=== PATIENT | female | born 1940 | race Caucasian/White ===

== ENCOUNTER 2020-10-10 15:37 | Emergency (ER) | payer OTHER ==
[~2020-10-10] VITALS: Ht 167.6 cm; Wt 65.8 kg
[2020-10-10] MEDS ORDERED: LIPITOR10 MG PO (16:47)
[2020-10-10] MEDS ORDERED: LOW DOSE ASPIRI81 M1 PO (16:47)
[2020-10-10] MEDS ORDERED: CEFUROXIME500 MG PO (16:49)
[2020-10-10] MEDS ORDERED: DULOXETINE HCL60 MG PO (16:49)
[2020-10-10] MEDS ORDERED: CARBIDOPA-LEVODOPA PO (16:49)
[2020-10-10] MEDS ORDERED: DEPAKOTE 250MG250 MG PO (16:49)
[2020-10-10] MEDS ORDERED: LANTUS SUBQ (16:50)
[2020-10-10 18:29] VITALS: BP 161/106
== END 2020-10-10 19:50 ==
LOC: ER 15:37
PROVIDERS: Emergency Medicine
DX: R45.851 Suicidal ideations (principal); Z20.822 Contact with and (suspected) exposure to COVID-19; R41.0 Disorientation, unspecified; Z88.0 Allergy status to penicillin; Z88.2 Allergy status to sulfonamides; Z79.899 Other long term (current) drug therapy; Z79.82 Long term (current) use of aspirin

== ENCOUNTER 2020-10-10 19:56 | Inpatient (IN) | payer OTHER, MEDICAID ==
[~2020-10-10] VITALS: Ht 1 cm; Wt 56.7 kg
[~2020-10-10 19:56] MED LIST: CARBIDOPA-LEVODOPA PO; CEFUROXIME500 MG PO; DEPAKOTE 250MG250 MG PO; DULOXETINE HCL60 MG PO; LANTUS SUBQ; LIPITOR10 MG PO; LOW DOSE ASPIRI81 M1 PO
[2020-10-10 20:40] VITALS: BP 140/80
--- NOTE | 2020-10-10 20:41 | NUR ---
ARRIVES TO FLOOR AT 2015 VIA CART FROM ER 80 YEAR OLD FEMALE. PT REPORTED TO HAVE BEEN [facility] BY AND SON WITH WHOM SHE LIVES WITH INCREASED AGITATION AND CONFUSION-PER HOSPITAL RECORDS SENT PT HAS MADE SEVERAL SI GESTURES AND STATEMENTS WHILE IN HOSPITAL-HAS BEEN ON CONSTANT OBSERVTION AT [facility] AFTER PUTTING CALL LIGHT CHORD AROUND NECK. PER [facility] ER STAFF WAS COMBATIVE AND ATTEMPTING TO GET OFF GOURNEY SEVERAL TIMES IN ER GIVEN IM GEODON AND ATIVAN. IS MILDLY SOMULENT DURING ADMIT INTERVIEW-SPEECH INCOHERENT-RAMBLING AND IS UNABLE TO PROVIDE ANY RELEVENT HX. ATTEMPTED TP CALL PT POOJA -NO ANSWER-MESSAGE LEFT. IS NOTED TO HAVE MULTIPLE SCABS ON ARMS,LEGS BILAT-WEARING VEST RESTRAINT AND HAND MITS UPON ARRIVAL TO UNIT. INCONTINENT CARE PROVIDED-POSITIONED FOR COMFORT IN BED. VS OBTAINED AND WNL. HIGH FALLS RISK-BED EXIT ALARM ON.
--- NOTE | 2020-10-11 00:27 | NUR ---
NO RETURN CALL RECEIVED FROM -PT REMAINS MILDLY SOMULENT-AROUSES TO VERBAL COMMANDS BUT SPEECH [id number] TO CONSENT TO TREATMENT D/T AMS AND SEDATION. DR. BARONE CONTACTED AND ORDERS RECEIVED TO INITATE 96 HOUR HOLD. FAXED TO [facility] AND AND [facility]. BLOOD SUGAR CHECKED AT 2200 AND IS 130-LANTUS INSULIN ADMINISTERED PER IN STORE REPRESENTATIVE ORDER.APPEARS TO BE RESTING QUIETLY IN BED
[2020-10-11 09:38] VITALS: BP 143/58
--- NOTE | 2020-10-11 18:06 | NUR ---
PATIENT WAS IN BED AWAKE WHEN CARE ASSUMED. DURING SHIFT CHANGE ROUND WITH OFF-GOING NURSE, WE NOTICED YELLOW LIQUID, ON THE BED/FLOOR LOOKS LIKE VOMITUS, PATIENT CLEANED UP, ASSISTED UP BY THIS FUEL AGENT/SECOND RN. NO FURTHER NAUSEA OR VOMITING NOTED, NURSE PRACTITIONER (TAHIR) NOTIFIED. PATIENT IS ALERT, AND ORIENTED X 1, FORGETFUL, VERY CONFUSED. PATIENT DENIES SUICIDAL IDEATION, NOT ABLE TO APPROPRIATELY RESPOND TO FURTHER ASSESSMENT QUESTIONS DUE TO COGNITIVE IMPAIRMENT. MEDICATION GIVEN CRUSHED IN PUDDING, WELL TOLERATED. INTERMITTENT YELLING NOTED, PATIENT BECAME VERY DIFFICULT TO VERBALLY REDIRECT, PRN SEROQUEL 25MG GIVEN AT 1553HRS, WITH POSITIVE EFFECT. NO S/S OF HYPER/HYPOGLYCEMIA NOTED, INSULIN GIVEN PER ORDER. NO SIGN OF ACUTE DISTRESS NOTED AT THIS TIME, WILL MONITOR FOR SAFETY.
[2020-10-11 20:42] VITALS: BP 120/94
--- NOTE | 2020-10-12 03:53 | NUR ---
ASSESSMENT: PT YELLED THROUGH OUT THE NIGHT. CALLS OUT FOR A "JOSEY". SEVERLY AGITATED. ZYPREXIA GIVEN IM WITH GOOD RESULTS. INCONT, WEARS A BRIEF. VSS, AFEBRILE. WAS COMPLIANT WITH TAKING MEDS THIS EVENING. DENIES PAIN. SLOW PROGRESS TOWARDS DC GOALS, WILL CONTINUE TO MONITOR.
[2020-10-12 08:25] VITALS: BP 141/70
--- NOTE | 2020-10-12 15:00 | NUR ---
Sleeping soundly this AM, arouses for meds given crushed in apple sauce. Confused speech, disorientated X4. No speech/behavior suggestive of SI/HI. Breath sounds clear. Reg HR auscultated. Color pink with brisk capillary refill with palpable peripheral pulses, no edema. Yellow urine per brief. Active bowel sounds over soft, rounded abdomen. Multiple circular scabs on lower legs, no s/o infection. called for update, given privacy code.
[2020-10-12 19:58] VITALS: BP 112/54
--- NOTE | 2020-10-12 20:54 | H ---
[facility] [address] [place] [address] HISTORY AND PHYSICAL Name: MONAE PATTON Room #: 525A-A ADM IN M.R.#: [id number] Admission: 10/10/20 Attend Phys: Alfredo Duncan MD Discharge: Date of : 44 Report #: [id number] THIS REPORT FOR: cc: FAM - Family physician unknown FAM - Family physician unknown Danny Reyes DO ~ DATE OF SERVICE: 10/11/2020 INPATIENT PSYCHIATRIC EVALUATION ATTENDING PSYCHIATRIST: Danny Reyes DO FRACTIONATION SUPERVISOR: Dr. Jabari Dejesus, hospitalist service. REASON FOR ADMISSION: Inpatient referral from [facility] for dementia with behavioral disturbance and psychosis. SOURCES OF INFORMATION: Interview with the patient's physician, medical records from [facility]. HISTORY OF PRESENT ILLNESS: This is a 80-year-old female brought by EMS for her home where she lives. She lives with her and son. She already has Parkinson's disease, history of dementia, requiring assistance with activities of daily living, history of depression, anxiety also noted. The patient was admitted around 10/07/2020 to [facility]. Bed bugs were noted as well with the patient, she was confused, agitated, aggressive. She made a suicidal statement. Labs from [place] showed urine with leukocytes growing gram-negative rods. TSH elevated at 5.88. CT head showed mild degree of cerebral atrophy. The patient's spouse spoke with correctional counselor/case manager reported the patient has been very agitated for the past week. Before admission, she has had episodes like this previously. She was put on Trileptal to assist with agitation, but has not been helpful. She was recently at [facility] a few weeks ago. stated there was no psychiatric followup since hospitalization. At [facility], the patient received Haldol and Geodon for agitation prior to arrival on the medical floor. She was screaming. PAST PSYCHIATRIC HISTORY: Depression, anxiety, dementia, history of anger issues and self-mutilating behavior. Recent prescription fills noted, Cymbalta 60 mg daily, Trileptal 300 mg twice daily, trazodone 25 mg at bedtime and Lamictal 25 mg b.i.d. The patient also has history of prescriptions for donepezil, gabapentin, Lyrica. Documented home meds [facility] [address] [place] [address] [facility] #: 525A-A ADM IN .R.#: [id number] Admission: 10/10/20 Attend Phys: Alfredo Duncan MD Discharge: Date of : 44 Report #: [id number] The patient's home medications noted at [facility] do not make a great amount a sense, so the inpatient active medications include aspirin 81 mg oral daily, atorvastatin 10 mg oral daily, carbidopa/levodopa one tab p.o. t.i.d., duloxetine 60 mg p.o. daily, famotidine 20 mg oral daily. Other medications as follows: She got Rocephin, Depakote DR 250 mg p.o. daily and 500 mg p.o. at bedtime, insulin glargine 14 units at bedtime, lispro, lamotrigine 25 mg oral b.i.d., levothyroxine 50 mcg oral daily, lisinopril 5 mg oral daily, Protonix 40 mg daily, Seroquel. SOCIAL HISTORY: No alcohol, no tobacco. No recreational drugs. FAMILY HISTORY: Brothers with diabetes mellitus. PAST SURGICAL HISTORY: Removal bladder stimulator 09/01/2017, placement of a stimulator 09/27/2015, percutaneous peripheral sacral nerve evaluation, appendectomy, cataract surgery, cholecystectomy, eye surgery, hysterectomy. At [facility], she was admitted for UTI, Klebsiella pneumoniae given Rocephin. She was continued with her Sinemet for Parkinson's disease. She had some malignant hypertension, diabetes mellitus type 2, was controlled, anemia with iron deficiency was detected. COVID-19 PCR was negative. LABORATORY DATA: Review of laboratories from [facility]. Other measurements weight 62.4 kilograms by bed scale. On 10/07/2020, H 10.1 and 31.1, white cell count 6.7 and platelet count 312. Sodium 141, potassium 3.5, chloride 106, bicarbonate 27, calcium 8.5, glucose 96. Hemoglobin A1c 8. Iron 45 mcg/dL. Iron saturation 23%. TIBC 197, which is low, UIBC 152, BUN 11, creatinine 0.7, estimated GFR greater than 60. TSH 5.68. Here at [facility], the patient was oriented to person. He was able to shake my hand. Not oriented to time and very limited interview. She was in a Amna chair with lap felicitas in place, turning her head intermittently. mse: attn/concn: very limited speech: slow/loud tp/tc/linear/very limited denies si/hi memory: not able to cooperate with testing insight/judgment impaired fund of knowledge diminished VITAL SIGNS: As follow today, 10/11/2020, temperature 35.9, pulse 106, respirations 18, BP 143/50, O2 sat 98%. Glucose around 11:20 was 330 that was [facility] [address] [place] [address] HISTORY AND PHYSICAL Name: MONAE PATTON Room #: 525A-A ADM IN M.R.#: [id number] Admission: 10/10/20 Attend Phys: Alfredo Duncan MD Discharge: Date of : 44 Report #: [id number] before lunch, before breakfast 208, last . CURRENT MEDICATIONS: In the hospital include cyanocobalamin 1000 mcg oral daily, Seroquel 25 mg oral at bedtime, Depakote 500 mg p.o. at bedtime, Seroquel 12.5 mg p.o. daily, lisinopril 5 mg p.o. daily, lamotrigine 25 mg p.o. b.i.d., duloxetine 60 mg oral daily, Depakote 250 mg oral daily, cefuroxime 500 mg p.o. b.i.d. formulation: 80 y/o female, known dementia case, admitted for agiataion,aggressive bhevaior and concern for family ability to care. Major Neuruocognitive Disorder with Behavioral Disturbance htn uti debility/deconditioning plan: evaluate and stabilize hospitalist conculted for medical management depakote level wednesday am no seizure hx accprding to disocntinue duloxetine, atorvastatin, seroquel to limit medication burden DDI's <ELECTRONICALLY SIGNED> By: Danny Reyes, 10/12/202053 1427 1521 Danny Reyes, DO /nt
--- NOTE | 2020-10-13 03:04 | NUR ---
ASSESSMENT: PT WAS SITTING IN THE CORRIDOR, IN A ANANYA CHAIR AT THE CHANGE OF SHIFT. PT'S CALLED. PT WAS ALLOWED TO TALK TO BUT WAS UNABLE TO HEAR HIM VIA THE TELEPHONE. THIS RN UPDATED THE PT'S AFTER GETTING PT'S CODE NUMBER FROM HIM. AFTER PT LEARNED THAT THE WAS NOT ALLOW TO VISIT AT THIS TIME SHE BEGAN YELLING HIS NAME. PT BECAME SEVERLY AGITATED AND NEED ZYPREXIA IM TO CALM DOWN. THE IM ZYPREXIA WAS NOT EFFECTIVE IT WAS THE NIGHT BEFORE. AFTER ABOUT 1.5 HRS THE PT FINALLY WENT TO SLEEP. SAFETY MEASURES WERE MAINTAINED. PT IS ALERT TIMES ONE WITH CONFUSION AND FORGETFULLNESS. VSS, AFEBRILE. PT WAS ABLE TO PIVOT FROM CHAIR TO BED WITH ASSIST OF 2. WILL CONTINUE TO MONITOR.
[2020-10-13 09:50] VITALS: BP 154/66
[2020-10-13 10:08] VITALS: BP 154/66
--- NOTE | 2020-10-13 10:24 | NUR ---
ASSUMED CARE AT 0700. BLOOD SUGAR LOW THIS MORNING (49). SHE WAS GIVE APPLE JUICE AND TOOK IT AGAIN AND IT WAS HIGHER (51). SHE ATE BREAKFAST AND IT WAS THEN TAKEN AGAIN BY PCT. IT WAS THEN 241. DR. WOODS NOTIFIED OF THE SAME. SHE HAS BEEN SITTING QUIETLY IN A RECLINING CHAIR. SHE TOOK HER MORNING MEDICATION WITHOUT PROBLEMS NOTED. SHE SAT THROUGH MORNING RT GROUP.
[2020-10-13 20:00] VITALS: BP 144/74
[2020-10-13 20:01] VITALS: BP 144/74
--- NOTE | 2020-10-14 03:45 | NUR ---
PATIENT WAS UP IN ANANYA CHAIR AT BEGINNING OF THE SHIFT. SHE WOULD CRY AND CALL OUT AT TIMES. SHE WOULD HIT HER HEAD WITH HER HANDS. SHE WOULD CALM WHEN SPOKEN TOO AND EASILY REDIRECTED. PATIENT WAS ASSISTED TO THE BATHROOM AND THEN TO BED AROUND 2200. SHE STRIPPED HER CLOTHES OFF AND SLEPT IN BED FOR A FEW HOURS AND BECAME AGITATED. PRN GIVEN. PT BACK TO SLEEP. PATIENT AWOKE AND TALKED TO HERSELF AND THEN BEGAN YELLING OUT. PATIENT WITH INCONTINENT CARES DONE. AND PATIENT PLACED IN ANANYA CHAIR WITH CHAIR ALARM ON AND WORKING AND BROUGHT OUT TO DINING ROOM. SHE IS SITTING CALMLY AND TALKING OUT AT TIMES TO OTHERS. CONTINUING TO MONITOR.
[2020-10-14 10:35] VITALS: BP 152/64
--- NOTE | 2020-10-14 15:16 | NUR ---
REQUIRES TOTAL ASSISTANCE IN ALL ADLS -WHEN HANDED CUP OF FRUIT FROM BREAKFAST TRAY WITH SPOON IN IT-PUT SPOON IN MOUTH AND ATTEMPTED TO SUCK ON IT LIKE A STRAW-DESPITE PROMPTING AND VERBAL QUEING FROM STAFF REQUIRES MAX ASSIST WITH ALL CARES-ATTEMPTING TO STAND UP ON HER STATING THAT SHE IS GOING TO "GO FIND MY HE HAS BEEN AT THE STORE FOR A LONG TIME"REQUIRES ASSIST OF TWO TO TRANSFER TO/FROM BEDSIDE COMMODE-INCONTINENT OF BOWEL AND BLADDER. WILL OCCASSIONALLY YELL OUT AND DID HAVE ONE EPISODE OF SLAPPING SELF IN FACE AT LUNCH TIME BUT WAS EASILY REDIRECTED. REQUIRES MEDS CRUSHED WHEN GIVEN WHOLE IN APPLESAUCE WILL SPIT OUT. "
--- NOTE | 2020-10-14 18:24 | NUR ---
CAL recieved a call from [facility] [phone], concerning a hotline recieved on the Pt. Marcela provided information on the Pt concerning bed bug bites and Pt's capacity to return home safely. Marcela stated she would like updates concerning the Pt's discharge plan. Gay also stated she would talk to the family about if the Pt's son has a DPOA and call CAL back. Cal will continue to follow
[2020-10-14 19:35] VITALS: BP 159/66
[2020-10-14 20:10] VITALS: BP 159/66
--- NOTE | 2020-10-15 04:11 | NUR ---
PATIENT HAS BEEN CALMER TONIGHT AND HAS SLEPT THRU THE NIGHT. EARLIER IN THE EVENING SHE WAS YELLING OUT AND SCREAMING. SEROQUEL 25MG PO GIVEN WITH HS MEDS CRUSHED IN PUDDING. PT SHOWING SIGNS OF POSSIBLE TARDIVE DYSKENSIA WITH ABNORMAL TONGUE MOVEMENT. NOT SURE IF THIS IS JUST HER OR SOMETHING MEDICAL FROM HER MEDS. PATIENT SLEEPING AT THIS TIME. BED IN LOW POSITION AND BED ALARM IS ON. CONTINUING TO MONITOR.
[2020-10-15 07:55] VITALS: BP 153/84
[2020-10-15 12:12] LABS: HEMATOCRIT 35.7 % (37.0-47.0); HEMOGLOBIN 11.6 gm/dL (12.0-15.0); MCH 29.5 pg (26.0-34.0); MCHC 32.5 g/dL (28.0-37.0); MCV 90.7 fL (80.0-100.0); RBC 3.93 mil/uL (4.20-5.00); RDW 14.2 % (10.5-14.5); WBC 6.8 thou/uL (4.0-11.0)
[2020-10-15 12:28] LABS: CREATININE 1.2 mg/dL (0.6-1.0); MAGNESIUM 2.3 mg/dL (1.8-2.4); POTASSIUM 4.6 mmol/L (3.5-5.1)
--- NOTE | 2020-10-15 14:13 | NUR ---
Assumed pt care at 0700. pt was oriented to self. Assessments completed,VSS. pt ambulates with a Amna chair. Denies si/hi. denies pain. pt had A BOWEL MOVEMENT THIS SHIFT. pT TOOK MEDS WHOLE WITH THIN LIQUID, NO DIFFICULTY NOTED.PT WAS CALM AND CO-OPERATIVE. AM BLOOD SUGAR WAS 129. NOON BLOOD SUGAR WAS 485, IT WAS RECHECKED AND IT WAS 490. DR HAND WAS NOTIFIED ABOUT PT bLOOD SUGAR. 12 UNIT OF INSULIN LISPRO WAS GIVEN AT 1319. PT INSULIN WAS RECHECK AT 1444 AND IT WAS 421. DR HAND WAS NOTIFIED. 10 UNITS OF INSULIN LISPRO WAS ADMINISTERED AT 1458. AT THIS TIME PT IS ASYMPTOMATIC. PT IS SITTING IN THE DAY ROOM WATCHING TV. WILL CONTINUE TO MONITOR.
--- NOTE | 2020-10-15 14:49 | NUR ---
Blood sugar re-checked. Currently 421. Patient received 12 units Insulin Lispro approximately 1.[address] Hammonds notified. Order obtained for Insulin Lispro 10 units onetime now. Order noted.
[2020-10-15 16:59] LABS: % SATURATION 31 % (20-39); IRON 67 ug/dL (50-170); TIBC 216 ug/dL (250-450)
[2020-10-15 17:27] LABS: FOLIC ACID 19.9 ng/mL (8.6-58.9)
--- NOTE | 2020-10-15 17:30 | NUR ---
CAL called Pt's , Antonio, to follow up about guardianship. Throughout the conversation Antonio asked " so when are you going to do this" CAL had to explain several times that he would need to contact and energy attorney to start the process. CAL again informed Of the recommendation for LTC of the Pt. Antonio then stated he has spoken to the Pt a few times and " she sounds like her normal self, so I think she can come home". CAL asked for the Pt son's phone number in an effort to make contact concerning the matter. Antonio did provide the phone number. CAL called Temi, , Pt's son concerning the matter. CAL provided information about Pt needing a guardian and due to not being able to sign a DPOA. Also recommendation for LTC. Pat stated they have been working on the bed bug issue in the house. Pat did confirm that Pt was hitting herself and yelling out at home. When asked about thoughts of LTC Pat stated it was a " hard choice". CAL asked Pat to talk to his father about a guardianship. Pat stated he would. CAL left contact information. CAL will follow up
[2020-10-15 19:38] VITALS: BP 136/117
[2020-10-16 00:06] LABS: GLYCOHEMOGLOBIN (HGB A1C) 7.8 % (4.8-5.6)
--- NOTE | 2020-10-16 03:59 | NUR ---
Assumed care for pt at 1900. Pt sitting in gerichair with chair alarm. Pt A&O to self. Pt has been calm and cooperative with assessment and cares. Pt compliant with HS medications and takes crushed with yogurt. Pt denies pain when asked. Pt not able to answer other nursing assessment questions. Pt last BM on 10/13/20 per report. Pt has been rested in bed during night hours, with eyes shut and appears to be sleeping. Pt hollered out earlier in shift, but was easily redirectable. Pt fall score is 55 and is on High Fall Risk precaution protocols. Pt on q 12 min checks for safety. Will continue to monitor for any changes in mood/behavior.
[2020-10-16 09:20] VITALS: BP 124/52
--- NOTE | 2020-10-16 13:15 | NUR ---
PATIENT HAS BEEN UP, AND OUT IN DAYROOM , PARTICIPATING IN GROUP THERAPY. PATIENT TOOK ALL MEDICATION CRUSHED IN YOGOURT WITHOUT DIFFICULTY. PATIENT IS EATING MEALS, AND DRINKING FLUID WELL. INCONTINENT CARE PROVIDED PER STAFF. PATIENT IS ALERT, AND ORIENTED X 1-2, ABLE TO COHERENTLY RESPOND TO SOME ASSESSMENT QUESTIONS, SHE DENIES SUICIDAL IDEATION, STARTED HITTING SELF IN THE HEAD, "I GO BANANAS WITHOUT LÁZARO, WE HAVE BEEN FOR 51 YEARS, HAVE NEVER BEEN SEPERATED". (LÁZARO) CALLED ON THE PHONE, AND PATIENT SPOKE WITH HIM. PATIENT CHOOSE NOT TO RESPOND TO FURTHER ASSESSMENT QUESTIONS, CONTINUE TO HIT SELF IN THE HEAD, YELLING, RESTLESS, BECAME DIFFICULT TO VERBALLY REDIRECT, PRN IM ZYPREXA 5MG GIVEN TO RIGHT DELTOID, WELL TOLERATED. AFFECT IS FLAT/BLUNTED, MOOD IS DEPRESSED/RESTLESS. NO SIGN OF ACUTE DISTRESS NOTED AT THIS TIME, WILL CONTINUE TO REDIRECT, AND MONITOR FOR SAFETY.
[2020-10-16 19:29] VITALS: BP 117/59
--- NOTE | 2020-10-17 04:09 | NUR ---
ASSUMED CARE FROM DAY SHIFT, PT IN GERCHAIR IN DAYROOM YELLING , UNBALE TO FOLLOW DIRECTION, ABLE TO TAKE PO PILLS IN PUDDING , PT THEN PLACED IN BED, AND ABLE TO SLEEP QUIETLY THROUHGOUT DELMI ROUNDCALVIN. BED ALARM ON FOR SAFETY.WILL CONITIUE WITH CURRENT PLAN OF CARE
--- NOTE | 2020-10-17 08:26 | NUR ---
PT SEEMS CONTENT IN DINING ROOM THIS AM. PT TOOK MEDS WHOLE WITHOUT ANY ISSUES. NO BEHAVIORS SEEN FROM PT AT THIS TIME. PT LUNGS CLEAR. PT DIDN'T SAY ANY GOAL OR ANYTHING SHE WANTS TO WORK ON TODAY.
[2020-10-17 08:30] VITALS: BP 180/70
[2020-10-17 09:47] VITALS: BP 180/70
--- NOTE | 2020-10-17 12:38 | NUR ---
on 10/16/[address] Newell called the [facility] worker, Marcela and left a message for a call back. Gay did not return the phone call. CAL again attempted to contact the Gay on this day. CAL left another message for a call back
--- NOTE | 2020-10-17 14:14 | NUR ---
RT Progress Note- Augie has not been active in both the milieu and recreation therapy groups since her admission. She does attend morning RT groups but does not engage even when prompted. It appears that pt becomes overstimulated in the afternoons and begins to yell out or hit herself which has hindered her ability to be present in groups. CARDIAC CATH TECH will continue to engage pt and encourage active participation.
--- NOTE | 2020-10-17 16:26 | NUR ---
PT ACCUCHECK TAKEN AND BLOOD SUGAR AMT 62, GAVE PT 8 OZ OF OJ AND GRAHMN CRACKERS. PT WAS ABLE TO EAT CRACKERS WITHOUT ANY PROBLEMS.
--- NOTE | 2020-10-17 18:00 | NUR ---
PT DID EAT DINNER THIS SAMUEL. WILL ASSESS BLOOD SUGAR AROUND 1999. PT DIDN'T RECIEVE ANY INSULIN AT DINNER.
--- NOTE | 2020-10-17 18:54 | NUR ---
PT HAS BEEN YELLING LÁZARO, ASKED PT WHO IS LÁZARO AND SHE SAID OVER THERE, PT THINKS HE IS HER. PT BLOOD SUGAR CHECKED 219. PT RECIEVED OLANZIPINE 5MG IM TO LEFT DELTOID.
[2020-10-17 19:15] VITALS: BP 143/76
[2020-10-17 20:00] VITALS: BP 143/76
--- NOTE | 2020-10-17 20:08 | NUR ---
PT TOOK MEDS THIS SAMUEL WITHOUT ANY ISSUES. PT NEEDS TO TAKE LARGER PILLS ONE AT A TIME. PT DID TRY TO TAKE OUT THE MEDS THAT DIDN'T GET SWALLOWED, PT DID SWISH WATER IN MOUTH WITH MEDS TO GET THEM BACK TO SWALLOWING.
--- NOTE | 2020-10-17 20:16 | NUR ---
PT STILL RESTLESS AND YELLING FOR HELP. ADM SEROQUEL 25MG PO FOR AGITATION. PT IN BED AT THIS TIME. PT WAS INCON. X1.
--- NOTE | 2020-10-17 20:53 | NUR ---
PT TALKING ABOUT NEEDING A HAIR CUT AND TO SEE THE DR. PT HAS LEGS OVER RAIL OF BED. PUT BLANKET OVER PT AND STATED IT WAS NIGHT AND NO APT AT THIS TIME OR ABLE TO GET HAIR DONE, PT BANGING ON SIDE OF RAIL WITH HAND ALSO.
--- NOTE | 2020-10-17 22:53 | NUR ---
Patient has been screaming from her bed for approximately 4 hours. Patient offered snack, toileting, music therapy, companionship. None of which have been effective. Attempted to assist patient with re-positioning, placed in ashlie chair, placed in bed. None of which has been helpful. Patient screaming for Antonio, talking to unseen others, speaking non-sensical speech. Appears to be responding to internal stimuli. Patient appears to be asleep for approximately 3 minutes then wakes up screaming and appears afraid. Spoke with Dr. Duncan. Due to PRN Seroquel and Olanzapine being ineffective, order obtained for Geodon 10mg IM STAT. Will also add that patient is hitting her head and attempting to bang head into side rail at this time.
--- NOTE | 2020-10-18 07:39 | NUR ---
PT BLOOD SUGAR THIS AM IS 68. GAVE PT ORANGE JUICE AND ALSO GRAHMN CRACKERS BEFORE BREAKFAST WAS SERVED.
[2020-10-18 08:30] VITALS: BP 145/74
--- NOTE | 2020-10-18 08:52 | NUR ---
PT SITTING OUT IN DINING ROOM AND ABLE TO FEED SELF. PT ABLE TO TAKE MEDS WHOLE WITH THIN WATER. PT SEEMS CALM AT THIS TIME. PT HAS SCARS TO LEFT LOWER LEG AND SOME SCABS TO RLE. PT DENIES ANY PAIN.
[2020-10-18 10:49] VITALS: BP 145/74
--- NOTE | 2020-10-18 13:19 | NUR ---
PT STARTED YELLING AND WANTING TO GO HOME. PT HAD TO BE TAKEN OUT OF THE DINING ROOM. ADM SEROQUEL 25MG PO FOR AGITATION.
--- NOTE | 2020-10-18 15:15 | NUR ---
NOTIFIED DR. LYNN STEELE ABOUT INSULIN. ORDERS WAS CHANGED FOR GLARGIN. WANTED TO KEEP PT ON MOD. SLIDING SCALE AT THIS TIME AND WILL MONITOR PT OVER THE WEEKEND ON GLUCOSE READINGS.
[2020-10-18 19:38] VITALS: BP 129/50
--- NOTE | 2020-10-19 04:52 | NUR ---
Pt. agitated at the first part of the shift yelling out and hitting her hands on the chair. Po med given for agitation (see emar) with little relief. Im med given later as pt. continued yelling out (see emar) with relief.
[2020-10-19 09:16] VITALS: BP 154/82
--- NOTE | 2020-10-19 16:12 | NUR ---
PT WAS VERY AGITATED THIS AFTERNOON @ 1300..SHE WAS BANGING HER HEAD ON GLASS WINDOW AND YELLING...MEDICATED WITH ZYPREXA IM @ 1330 WITH FAIRLY GOOD RESULTS..
[2020-10-19 20:07] VITALS: BP 123/58
--- NOTE | 2020-10-20 03:33 | NUR ---
10-19-20 CARE TRANSFERRED 1899 OBSERVED PT SITTING IN RECLINER IN DAY ROOM AND NOTED PT JAW AND TONGUE IN CONSTANT MOTION. LATER PT AAOX1, VSS, RR EVEN AND NONLABORED ON RA. OBSERVED NO SI/HI BEHAVIORS AND PT DENIES PAIN. LATER PT BECAME AGITATED AND PRN MEDICATION WAS ADMIN, LATER NOTED PT WAS RESTING WITH EYES CLOSED IN BED. ZERO S/S OF ACUTE DISTRESS NOTED, PT WILL CONTINUE TO BE MONITOR PER [facility] PROTOCOL.
[2020-10-20 08:26] VITALS: BP 163/89
--- NOTE | 2020-10-20 10:32 | NUR ---
Assumed pt care at 0700. oriented to self. Assessments completed,vss. calm and co-operative with care. take meds whole, no difficulty noted. no sign of acute distress upon assessments. at this time there no c/o pain. ambulates with a gerichair. denies si/hi. will continue to monitor pt.
[2020-10-20 20:00] VITALS: BP 105/56
--- NOTE | 2020-10-21 03:49 | NUR ---
10-21-20 CARE TRANSFERRED 0 OBSERVED PT SITTING IN RECLINER IN DAY ROOM. LATER PT AAOX1, VSS, RR EVEN AND NONLABORED ON RA. OBSERVED NO SI/HI BEHAVIORS AND NO S/S OF PAIN. PT WAS CALM AND COOPERATIVE DURING NURSING ASSESSMENT. LATER PT WAS YELLING OUT FOR A FAMILY MEMBER AND PT WAS REDIRECTED THAT SHE WAS IN THE HOSPITAL. ZERO S/S OF ACUTE DISTRESS NOTED, PT WILL CONTINUE TO BE MONITOR PER [facility] PROTOCOL.
[2020-10-21 15:35] VITALS: BP 136/64
--- NOTE | 2020-10-21 17:48 | NUR ---
Assumed pt care at 0700. pt was oriented to self. Assessments completed,vss. pt took meds whole, no difficulty noted. pt denies si/hi. c/o pain tylenol administered for pain. ambulates with a Amna chair. pt was irritable, yelling and screaming. pt was redirected.there was no sign of acute distress noted upon assessments. At this time pt is eating dinner.
[2020-10-21 19:55] VITALS: BP 106/52
--- NOTE | 2020-10-22 04:03 | NUR ---
10-21-20 CARE TRANSFERRED 1899. OBSERVED PT SITTING IN RECLINER IN DAY ROOM. LATER PT AAOX1, VSS, RR EVEN AND NONLABORED ON RA, PT JAW AND TONGUE IN CONSTANT MOTION. NO SI/HI BEHAVIORS OBSERVED, NO S/S OF PAIN. PT HAS BEEN COOPERATIVE AND CALM BUT OCCASSIONALY YELLS OUT FOR FAMILY MEMBERS. ZERO S/S OF ACUTE DISTRESS NOTED, PT WILL CONTINUE TO BE MONITOR PER [facility] PROTOCOL.
[2020-10-22 07:30] VITALS: BP 157/78
--- NOTE | 2020-10-22 08:57 | NUR ---
Nutrition F/u: Wt stable from admit. Intake avg 75-100% most meals. No recent metabolic labs. BG 122-179. SSI and other meds reviewed. Pt appears at low nutrition risk with stable nutrition status. Continue POC.
--- NOTE | 2020-10-22 10:22 | NUR ---
Alert and orientated to name only. Denies SI/HI. Confused speech. Calm and cooperative, compliant with meds, took whole with pudding and then H2O. Held meds in mouth several minutes prior to swallowing. Breath sounds clear. Reg HR auscultated. Color pink with brisk capillary refill and palpable peripheral pulses. Brief dry. Active bowel sounds over soft, rounded abdomen. Able to stand for several minutes. Currently sitting in day room with lap felicitas on with chair alarm. No s/o distress.
[2020-10-22 19:20] VITALS: BP 140/106
--- NOTE | 2020-10-23 05:10 | NUR ---
ASSESSMENT: PT REMAIN ALERT AND ORIENT TIMES ONE, SELF ONLY. ZYPREXIA GIVEN FOR SEVERE AGITATION. WAS SITTING IN [facility]NANY[facility] CHAIR AT SHIFT CHANGE. SLEPT ALL NIGHT POST ANTIPSYCHOTIC WAS GIVEN. INCONT TO URINE TIMES 3. NO BM THIS SHIFT. SLOW PROGRESS TOWARDS DC GOAL. WILL CONTINUE TO MONITOR.
[2020-10-23 09:57] VITALS: BP 129/57
--- NOTE | 2020-10-23 13:13 | NUR ---
Alert to name only. Confused speech, occassional coherent statements. Denies SI/HI. Breath sounds clear. Reg HR auscultated. Color pink with brisk capillary refill and palpable peripheral pulses. No edema. Brief dry. Active bowel sounds over soft, flat abdomen. Up ambulating with walker with PT.
[2020-10-23 18:54] VITALS: BP 154/70
[2020-10-23 21:00] VITALS: BP 154/70
--- NOTE | 2020-10-24 03:40 | NUR ---
Assumed pt care at 1900. Alert and oriented to self only,pt very restless and yelling out at the beginning of the shift;medicated with PRN Seroquel and effective.VSS.Denied pain on assessment. Took meds crushed w/o any problems.Pt's speech is sometimes noncoherent but at times clear. Assist of 2 to bed,incontinent of B&B.Fall precautions in place,resting w/o any distress noted.Will continue to monitor pt.
[2020-10-24 07:30] VITALS: BP 160/71
[2020-10-24 08:00] VITALS: BP 160/71
--- NOTE | 2020-10-24 08:42 | NUR ---
PT OUT IN DINING ROOM EATING BREAKFAST. PT TOOK AM MEDS WITHOUT ANY ISSUES. PT LUNGS CLEAR. PT HAS SOME SCABS TO LOWER EXT ON RT AND OLD SCARS TO LE. PT COMPLIENT WITH CAR. IS DOWNSTAIRS WAITING FOR PT. DR. Mcwilliams STILL WORKING ON DISCHARGING IN COMPUTER.
[2020-10-24] MEDS ORDERED: QUINU5 PD PO (08:51)
[2020-10-24] MEDS ORDERED: DEPAKOTE SPRIN125 MG PO (08:52)
[2020-10-24] MEDS ORDERED: CYMBALTA30 MG PO (08:54)
[2020-10-24] MEDS ORDERED: SEROQUEL 50 MG50 M1 PO (08:56)
[2020-10-24] MEDS ORDERED: CARBIDOPA-LEVO1 EAC1 PO (08:58)
[2020-10-24] MEDS ORDERED: PROTONIX 20 MG20 M1 PO (09:00)
--- NOTE | 2020-10-24 09:00 | NUR ---
ASSISTED PT TO BATHROOM. PT ABLE TO BEAR WEIGHT AND TAKE FEW STEPS AND USED RAILS IN BATHROOM. PT NEEDED GUIDANCE TO SIT ON THE TOILET. PT ABLE TO WIPE SELF, ASSISTED PT WITH GETTING DRESSED AT THIS TIME. PT WHEELED OUT OF ROOM AND IN W/C FOR DISCHARGE. PT ABLE TO SIGN D/C PAPER.
[2020-10-24] MEDS ORDERED: SYNTHROID50 MCG PO (09:01)
[2020-10-24] MEDS ORDERED: LANTUS SUBQ (09:01)
[2020-10-24] MEDS ORDERED: VITAMIN B-12500 MCG PO (09:02)
[2020-10-24] MEDS ORDERED: VITAMIN D3125 MC1 PO (09:02)
--- NOTE | 2020-10-24 09:06 | NUR ---
CAL sent home health referrals to the following [facility]- denied does not take Pt's insurance [facility]- Declined due to no openings [facility]- Declined due to caseloads in the Pt's area at capacity [facility] - no avalibilty in Pt's area [facility]- does not cover area Pt' lives [facility]
[2020-10-24 09:12] VITALS: BP 160/71
--- NOTE | 2020-10-24 09:40 | NUR ---
PT TAKEN DOWN TO ER WHERE LÁZARO THERE. WAITING ON MACHINERY REPAIR MAINTENANCE SUPERVISOR CICI TO SEE HIM ABOUT PAPER WORK ON MEDICAID. SW NOTICED THAT HE HAD A BROWNISH/RED BUG CRAWLING ON HIS JACKET. ASSISTED PT WITH GETTING FROM WHEELCHAIR TO CAR. PT NEEDED DIRECTION TO SITTING IN CAR. WENT OVER MEDICATIONS WITH AND WHAT SHE TOOK THIS AM. VERBALY UNDERSTOOD D/C ORDERS.
--- NOTE | 2020-10-24 10:21 | NUR ---
CAL met with Pt's , Antonio, in the ED waiting room. CAL provided the phone number for Med assist for Antonio to follow up on the medicaid application and documents he will need to provide. CAL also informed that referrals have been sent out to home health agencies and still awaiting approval. CAL will follow up with Antonio once Pt has been approved by a home health agency. Antonio did show CAL the petition he has filed in [facility] for guardianship. CAL encouraged Antonio to follow up with his assistant prosecuting attorney concerning the matter.
--- NOTE | 2020-10-24 12:00 | NUR ---
LÁZARO THOMAS CALLED AND ASKING ABOUT SCRIPTS, THIS LINE MECHANIC TOLD HIM THEY WAS IN THE PACKET FROM [facility]. HE GAVE THIS LINE MECHANIC ADDRESS TO [facility] AND THIS LINE MECHANIC CALLED [facility] AND THEY HAD NOT FILLED SCRIPTS ON THE PATIENT. CALLED BACK AND TOLD THEM THEY HAVE NOT GOT SCIPTS. WAS FIRST SAYING THEY WAS NOT ABLE TO FILL OUT SCRIPTS, BECAUSE THEY WAS NOT ON THE LIST.
--- NOTE | 2020-10-25 12:48 | D ---
[facility] [place] [address] [facility]: [facility]A [facility] IN M.R.#: [id number] Admission: 10/10/20 Attend Phys: Alfredo Duncan MD Discharge: 10/24/20 Date of : 44 Report #: [id number] THIS REPORT FOR: cc: FAM - Family physician unknown FAM - Family physician unknown Danny Reyes DO ~ DATE OF SERVICE: 10/24/2020 INPATIENT PSYCHIATRIC DISCHARGE SUMMARY ATTENDING PSYCHIATRIST: Danny Reyes DO. CERTIFIED PHYSICIAN'S ASSISTANT AT THE TIME OF DISCHARGE: Danny Alonso MD DISCHARGE DIAGNOSES: Major neurocognitive disorder, likely Alzheimer's with behavioral disturbance. Medical comorbidities include tardive dyskinesia of the oral buccal area, namely the tongue, recent UTI, resolved; hypertension; diabetes mellitus type 2, Parkinson's disease, on Sinemet; history of generalized seizure disorder; hypothyroidism; hyperlipidemia. The patient is discharging to her home in [place], [place]. There is home health ordered for PT, OT, nursing and social work. The patient requires 24-hour assistance. Her is aware of this. DISCHARGE MEDICATIONS: The patient's discharge medications are as follows: Aspirin 81 mg oral daily for heart protection, lisinopril 5 mg a day for hypertension, Depakote 1000 mg oral twice daily for mood stabilization, duloxetine 30 mg oral daily for depression, Seroquel 125 mg oral daily at 1300, carbidopa/levodopa 10/100 one tab oral 3 times a day at 0900, 1500, 2100; pantoprazole 40 mg oral daily, insulin Lantus 5 units subcutaneous at bedtime, blood sugars twice daily; levothyroxine 50 mcg oral daily for supplementation, cyanocobalamin 1000 mcg oral daily, cholecalciferol with vitamin D3 5000 International Units daily. LABORATORY DATA: This admission, hematology, H and H 7.6 and 35.7, white count 6.8, platelets 353. Glucose ranging from 73-252 in the last 24 hours or so. Toxicology last Depakote level on 10/21/2020 was 60. REASON FOR ADMISSION: Back on 10/10/2020, a 80-year-old female brought by EMS to the Emergency Room with history of depression, anxiety noted. She was admitted to [facility] on 09/09, bed bugs were noted. HOSPITAL COURSE: The patient was admitted to Geriatric Psychiatry Unit. We titrated her on Depakote regimen. She had some afternoon sundowning, was started on Seroquel at 1300 and increased the dose to 125 mg oral daily. The patient did not make clear improvement, but overall, she had less episodes of yelling, head banging than she had earlier in the stay. The patient does have [facility] [address] [place] [address] DISCHARGE SUMMARY [facility] Room #: 525A-A [facility] IN M.R.#: [id number] Admission: 10/10/20 Attend Phys: Alfredo Duncan MD Discharge: 10/24/20 Date of : 44 Report #: [id number] an advanced dementia and is needing 24/7 care and assistance. [facility] was involved in case. We advised them we cannot keep the patient for guardianship, as she has a home caregiver to return to. PHYSICAL EXAMINATION: GENERAL: Nonambulatory, kyphotic station. VITAL SIGNS: On the day of discharge, 35.8 temp, pulse 95 , respirations 18, BP 160/71. MUSCULOSKELETAL: Abnormal gait. Abnormal station. MENTAL STATUS EXAMINATION: This is a well-developed, ill-appearing female appearing older than stated age. Attention limited. Concentration limited. Speech slow, normal rate. Thought process linear and limited. Thought content, difficult to understand, but generalized poverty of thought. mood/affect- constricted congruent No SI, no HI. No auditory, visual, or tactile hallucinations. No hopelessness, no helplessness. Memory, not formally tested. Insight impaired, judgment impaired. Fund of knowledge well below average. PROGNOSIS: For this patient is guarded given her age of 80 and neurodegenerative disorder and medical problems. <ELECTRONICALLY SIGNED> By: Danny Reyes DO 10/25/20 [id number] Danny Reyes DO /nt
== END 2020-10-24 09:40 | disposition home health service (06) | DRG 57 ==
LOC: SBH 19:56
PROVIDERS: Internal Medicine; ADMIT Psychiatry & Neurology Psychiatry; ATTEND Psychiatry & Neurology Psychiatry
DX: G30.9 Alzheimer's disease, unspecified (principal); F02.81 Dementia in other diseases classified elsewhere, unspecified severity, with behavioral disturbance; F01.51 Vascular dementia, unspecified severity, with behavioral disturbance; N39.0 Urinary tract infection, site not specified; R45.851 Suicidal ideations; G24.01 Drug induced subacute dyskinesia; I10 Essential (primary) hypertension; E11.9 Type 2 diabetes mellitus without complications; G20 Parkinson's disease; E03.9 Hypothyroidism, unspecified; G40.409 Other generalized epilepsy and epileptic syndromes, not intractable, without status epilepticus; E78.5 Hyperlipidemia, unspecified; E53.8 Deficiency of other specified B group vitamins; F32.9 Major depressive disorder, single episode, unspecified; F41.9 Anxiety disorder, unspecified; Z88.0 Allergy status to penicillin; Z88.2 Allergy status to sulfonamides; Z90.49 Acquired absence of other specified parts of digestive tract; Z98.42 Cataract extraction status, left eye; Z98.41 Cataract extraction status, right eye
CPT/HCPCS: 10880